=== PATIENT | female | born 2000 | race Caucasian/White ===

== ENCOUNTER 2018-08-21 12:20 | Emergency (ER) | payer OTHER ==
[2018-08-21 13:03] LABS: Pregnancy Test - Urine (BHCG) Negative (Negative)
[2018-08-21 13:04] LABS: Bilirubin Negative (Negative); Blood, Urine Negative (Negative); Clarity Clear (Clear); Glucose, Urine (Dipstick) Negative (Negative); Leukocyte Negative (Negative); Nitrite Negative (Negative); Pregu Control Background? CLEAR/WHITE (CLR/WHITE); Pregu Control Bar Appear? YES (CONTROL BAR); Protein, Urine (Dipstick) Negative (Neg-Trace); Urobilinogen 0.2 mg/dL (0.2-1.0); pH, Urine 6.5 (5.0-9.0)
== END 2018-08-21 13:46 | disposition home or self-care (01) ==
LOC: SCSER 12:20
DX: M54.5 Low back pain (principal); R35.0 Frequency of micturition; K21.9 Gastro-esophageal reflux disease without esophagitis
CPT/HCPCS: 81003; 81025; 99284

== ENCOUNTER 2018-08-24 14:30 | Outpatient (CLI) | payer OTHER ==
--- NOTE | 2018-08-24 15:10 | ULT ---
RENAL ULTRASOUND: DATE: 08/24/2018. PROVIDED CLINICAL HISTORY: Frequent urination and left flank pain. FINDINGS: The right kidney measures about 10.5 x 4.2 x 3.8 cm and demonstrates no evidence for hydronephrosis o r mass. The left kidney measures about 10.8 x 5.4 x 4.2 cm and demonstrates no evidence for hydronephrosis or mass. The urinary bladder is completely empty and not able to be evaluated. IMPRESSION: No evidence for hydronephrosis. POS: [facility]
== END 2018-08-24 14:31 | disposition home or self-care (01) ==
LOC: SCSULT 14:30
PROVIDERS: ATTEND Family Medicine
DX: R35.0 Frequency of micturition (principal); R10.9 Unspecified abdominal pain; Z00.00 Encounter for general adult medical examination without abnormal findings
CPT/HCPCS: 36415; 76770; 80053; 80061; 81001; 84300; 84443; 84588; 85025